=== PATIENT | female | born 1990 | race Caucasian/White ===

== ENCOUNTER 2020-11-14 09:00 | Inpatient (IN) | payer OTHER ==
[2020-11-14] MEDS: DEXTROSE 5%-LACTATED RINGERS 1,000 ML IV SCH ×2 (09:35→15:50)
[2020-11-14] MEDS ORDERED: SODIUM CHLORIDE 100 ML IVPB ONE ×3 (09:41→17:33)
[2020-11-14] MEDS ORDERED: AMPICILLIN SODIUM 2 GM VIAL ONE (09:41)
[2020-11-14 09:57] VITALS: BMI 30.9
[2020-11-14 10:30] LABS: BASO % 0.1 % (0-2.0); HEMATOCRIT 33.4 % (32.4-45.2); HEMOGLOBIN 11.3 GM/dL (10.7-15.3); LYMPH % 9.1 % (8-40); MCH 29.7 pg (25.7-33.7); MCHC 33.7 g/dl (32.0-36.0); MEAN CELL VOLUME 88.1 fl (80-96); MEAN PLT VOLUME 7.3 fl (7.5-11.1); MONO % 2.5 % (3.8-10.2); NEUT % 88.3 % (42.8-82.8); PLATELET COUNT 285 10^3/uL (134-434); RBC 3.79 M/mm3 (3.60-5.2); RDW 14.8 % (11.6-15.6); WHITE BLOOD COUNT 12.3 K/mm3 (4.0-10.0)
[2020-11-14] MEDS ORDERED: PROMETHAZINE HCL 25 MG/1 ML VIAL IVPB ONE (10:33)
[2020-11-14] MEDS ORDERED: BUTORPHANOL TARTRATE 1 MG/ML VIAL IVPUSH PRN (10:33)
[2020-11-14 10:41] LABS: INR 0.96 (0.83-1.09); PROTHROMBIN TIME (PATIENT) 11.8 SEC (9.7-13.0)
[2020-11-14 10:43] LABS: ACTIVATED PTT 28.2 SECONDS (25.2-36.5)
[2020-11-14] MEDS ORDERED: AMPICILLIN - 2 GM in SODIUM CHLORIDE 100 ML IVPB ONE (10:49)
[2020-11-14 10:53] LABS: BLOOD UREA NITROGEN 8.6 mg/dL (7-18); CALCIUM 8.4 mg/dL (8.5-10.1)
[2020-11-14 10:57] LABS: CREATININE 0.6 mg/dL (0.55-1.3)
[2020-11-14] MEDS ORDERED: PROMETHAZINE HCL 25 MG/1 ML VIAL ONE ×2 (11:03→15:18)
[2020-11-14] MEDS ORDERED: BUTORPHANOL TARTRATE 2 MG/ML VIAL ONE (11:03)
[2020-11-14] MEDS ORDERED: AMPICILLIN SODIUM 1 GM VIAL ONE ×2 (13:31→17:33)
[2020-11-14] MEDS: AMPICILLIN - 1 GM in SODIUM CHLORIDE 100 ML IVPB SCH ×3 (13:50→22:49)
[2020-11-14] MEDS ORDERED: OXYTOCIN 20 UNITS in 0.9% NS 20 UNIT/1,000 ML INFUS.BAG IV ONE ×2 (14:26→22:31)
[2020-11-14] MEDS ORDERED: AMPICILLIN - 1 GM in SODIUM CHLORIDE 100 ML IVPB SCH (15:00)
[2020-11-14] MEDS ORDERED: BUTORPHANOL TARTRATE 1 MG/ML VIAL IVPUSH ONE (15:03)
[2020-11-14] MEDS ORDERED: PROMETHAZINE HCL 25 MG/1 ML VIAL IVPUSH ONE (15:03)
[2020-11-14] MEDS ORDERED: BUTORPHANOL TARTRATE 1 MG/ML VIAL ONE (15:18)
[2020-11-14] MEDS ORDERED: OXYTOCIN 30 UNITS in 0.9% NS 30 UNIT/500 ML INFUS.BAG IVPB ONE (16:48)
[2020-11-14] MEDS ORDERED: LIDOCAINE HCL 1% PRESERVATIVE FREE - 30ML VIAL ONE ×2 (16:49→19:07)
[2020-11-14] MEDS ORDERED: OXYTOCIN 30 UNITS in 0.9% NS 30 UNIT/500 ML INFUS.BAG IVPB SCH (17:30)
[2020-11-14] MEDS ORDERED: METHYLERGONOVINE MALEATE 0.2 MG/1 ML AMP IM PRN (19:39)
[2020-11-14] MEDS ORDERED: BISACODYL 10 MG SUPP.RECT RC PRN (19:39)
[2020-11-14] MEDS ORDERED: BENZOCAINE 20% 57 GM BOTTLE TP PRN (19:39)
[2020-11-14] MEDS ORDERED: BENZOCAINE 28 GM HEMORRHOIDAL OINTMENT TP PRN (19:39)
[2020-11-14] MEDS ORDERED: WITCH HAZEL 50% (TUCKS) 40 PAD/JAR PAD TP PRN (19:39)
[2020-11-14] MEDS ORDERED: OXYTOCIN 20 UNITS in 0.9% NS 20 UNIT/1,000 ML INFUS.BAG IV SCH (19:45)
[2020-11-14] MEDS: ACETAMINOPHEN 325 MG TABLET (FP) PO PRN (22:30)
[2020-11-14] MEDS: IBUPROFEN 600 MG TABLET (FP) PO PRN (22:30)
[2020-11-14] MEDS ORDERED: IBUPROFEN 600 MG TABLET (FP) PO ONE (22:30)
[2020-11-14] MEDS ORDERED: ACETAMINOPHEN 325 MG TABLET (FP) ONE (22:31)
[2020-11-15] MEDS: FERROUS SO4 325 MG TABLET (FP) PO SCH ×3 (00:06→22:33)
[2020-11-15 00:50] LABS: CORD BASE EXCESS -9.9 mmol/L (0-2); CORD HCO3 19.1 mmHg (20-29); CORD PCO2 52.5 mmHg (30-78); CORD pH 7.179 (7.14-7.44)
[2020-11-15 00:51] LABS: CORD BASE EXCESS -10.5 mmol/L (0-2); CORD HCO3 19.2 mmHg (20-29); CORD PCO2 56.6 mmHg (30-78); CORD pH 7.149 (7.14-7.44)
[2020-11-15] MEDS: PRENATAL VITAMINS W/ FOLIC ACID TABLET (FP) PO SCH (09:32)
[2020-11-15 09:59] LABS: BASO % 0.4 % (0-2.0); EOS % 0.1 % (0-4.5); HEMATOCRIT 29.4 % (32.4-45.2); HEMOGLOBIN 9.6 GM/dL (10.7-15.3); LYMPH % 14.1 % (8-40); MCH 29.5 pg (25.7-33.7); MCHC 32.7 g/dl (32.0-36.0); MEAN CELL VOLUME 90.4 fl (80-96); MEAN PLT VOLUME 7.2 fl (7.5-11.1); NEUT % 81.4 % (42.8-82.8); PLATELET COUNT 222 10^3/uL (134-434); RBC 3.25 M/mm3 (3.60-5.2); RDW 15.1 % (11.6-15.6)
[2020-11-15] MEDS ORDERED: SENNOSIDES/DOCUSATE COMBO (SENNA PLUS) TABLET (UD) PO PRN (22:00)
[2020-11-16] MEDS: IBUPROFEN 600 MG TABLET (FP) PO PRN (05:59)
[2020-11-16] MEDS: ACETAMINOPHEN 325 MG TABLET (FP) PO PRN (06:02)
[2020-11-16] MEDS: FERROUS SO4 325 MG TABLET (FP) PO SCH (09:49)
[2020-11-16] MEDS: PRENATAL VITAMINS W/ FOLIC ACID TABLET (FP) PO SCH (09:49)
[2020-11-16 10:52] VITALS: BP 126/78; PULSE 82; TEMP 97.8
== END 2020-11-16 14:40 | disposition home or self-care (01) | DRG 560 ==
LOC: JLDR 09:00 → J3W 22:53
PROVIDERS: ADMIT Obstetrics & Gynecology; ATTEND Obstetrics & Gynecology
PROC: 10E0XZZ Delivery of Products of Conception, External Approach (ICD-10-PCS; principal; 2020-11-14)
PROC: 10907ZC Drainage of Amniotic Fluid, Therapeutic from Products of Conception, Via Natural or Artificial Opening (ICD-10-PCS; 2020-11-14)
PROC: 0W8NXZZ Division of Female Perineum, External Approach (ICD-10-PCS; 2020-11-14)
DX: O80 Encounter for full-term uncomplicated delivery (principal); Z37.0 Single live birth; Z3A.38 38 weeks gestation of pregnancy
CPT/HCPCS: 36415; 36600; 59025; 59409; 80048; 82803; 85025; 85610; 85730; 86780; 86850; 86900; 86901; C9803; U0003; U0005

== ENCOUNTER 2022-10-27 10:11 | Inpatient (IN) | payer OTHER ==
[2022-10-27] MEDS ORDERED: CITRIC ACID/SODIUM CITRATE 30 ML UNIT-DOSE CUP PO ONE (11:33)
[2022-10-27] MEDS ORDERED: AMPICILLIN NA/SULBACTAM NA 1.5 GM in SODIUM CHLORIDE 100 ML IVPB ONE (11:41)
[2022-10-27] MEDS ORDERED: ELECTROLYTE-148 SOLN 1,000 ML IV SCH (11:45)
[2022-10-27 11:56] VITALS: BMI 30.9
[2022-10-27] MEDS ORDERED: FENTANYL CITRATE/PF 50 MCG/ML VIAL ONE (12:02)
[2022-10-27] MEDS ORDERED: morphine SULFATE/PF 1 MG/2 ML (2cc Syringe - QUVA) ONE (12:02)
[2022-10-27] MEDS ORDERED: ACETAMINOPHEN 500 MG TABLET (FP) ONE (12:06)
[2022-10-27 12:10] LABS: BASO % 0.2 % (0-2.0); EOS % 0.1 % (0-4.5); HEMATOCRIT 35.7 % (32.4-45.2); HEMOGLOBIN 11.8 GM/dL (10.7-15.3); LYMPH % 9.6 % (8-40); MCH 29.3 pg (25.7-33.7); MCHC 33.1 g/dl (32.0-36.0); MEAN CELL VOLUME 88.4 fl (80-96); MEAN PLT VOLUME 7.3 fl (7.5-11.1); MONO % 3.6 % (3.8-10.2); NEUT % 86.5 % (42.8-82.8); PLATELET COUNT 279 10^3/uL (134-434); RBC 4.04 M/mm3 (3.60-5.2); RDW 14.1 % (11.6-15.6); WHITE BLOOD COUNT 12.3 K/mm3 (4.0-10.0)
[2022-10-27 12:17] LABS: INR 0.95 (0.83-1.09)
[2022-10-27 12:19] LABS: ACTIVATED PTT 27.3 SECONDS (25.2-36.5)
[2022-10-27] MEDS ORDERED: ONDANSETRON 4 MG/2 ML VIAL ONE (12:55)
[2022-10-27] MEDS ORDERED: KETOROLAC TROMETHAMINE 30 MG/1 ML VIAL ONE (12:55)
[2022-10-27] MEDS ORDERED: ceFAZolin SODIUM 1 GM VIAL ONE (12:55)
[2022-10-27] MEDS ORDERED: OXYTOCIN 10 UNITS/ML VIAL ONE (12:55)
[2022-10-27 13:06] LABS: POTASSIUM 3.9 mmol/L (3.5-5.1)
[2022-10-27 13:08] LABS: BLOOD UREA NITROGEN 11.7 mg/dL (7-18)
[2022-10-27 13:11] LABS: CREATININE 0.6 mg/dL (0.55-1.3)
[2022-10-27 13:43] LABS: CORD pH 7.243 (7.14-7.44)
[2022-10-27] MEDS ORDERED: METHYLERGONOVINE MALEATE 0.2 MG/1 ML AMP IM PRN (13:45)
[2022-10-27] MEDS ORDERED: ACETAMINOPHEN 325 MG TABLET (FP) PO PRN (13:45)
[2022-10-27 13:48] LABS: CORD BASE EXCESS -3.7 mmol/L (0-2); CORD PCO2 47.7 mmHg (30-78); CORD pH 7.302 (7.14-7.44)
[2022-10-27 14:02] LABS: HEPATITIS B SURFACE AG MATERN NON-REACTIVE (NONREACTIVE)
[2022-10-27 14:31] LABS: HIV INTERPRETATION NEGATIVE (NEGATIVE)
[2022-10-27] MEDS: OXYTOCIN 20 UNITS in 0.9% NS 20 UNIT/1,000 ML INFUS.BAG IV SCH (15:30)
[2022-10-27] MEDS ORDERED: OXYTOCIN 20 UNITS in 0.9% NS 20 UNIT/1,000 ML INFUS.BAG IV ONE (15:44)
[2022-10-27 16:09] VITALS: RESP 18
[2022-10-28] MEDS ORDERED: oxyCODONE HCL 5 MG TABLET PO PRN (01:45)
[2022-10-28] MEDS: OXYTOCIN 20 UNITS in 0.9% NS 20 UNIT/1,000 ML INFUS.BAG IV SCH (02:00)
[2022-10-28] MEDS: IBUPROFEN 600 MG TABLET (FP) PO PRN ×3 (05:34→23:11)
[2022-10-28] MEDS: SIMETHICONE 80 MG TAB.CHEW (FP) PO PRN ×2 (05:34→23:11)
[2022-10-28 06:40] LABS: BASO % 0.4 % (0-2.0); EOS % 0.2 % (0-4.5); HEMATOCRIT 29.9 % (32.4-45.2); HEMOGLOBIN 9.9 GM/dL (10.7-15.3); LYMPH % 11.6 % (8-40); MCH 29.5 pg (25.7-33.7); MCHC 33.1 g/dl (32.0-36.0); MEAN CELL VOLUME 88.9 fl (80-96); MEAN PLT VOLUME 7.2 fl (7.5-11.1); MONO % 3.9 % (3.8-10.2); NEUT % 83.9 % (42.8-82.8); PLATELET COUNT 224 10^3/uL (134-434); RBC 3.37 M/mm3 (3.60-5.2); RDW 13.9 % (11.6-15.6); WHITE BLOOD COUNT 11.7 K/mm3 (4.0-10.0)
[2022-10-28] MEDS ORDERED: DIPHTH,PERTUSS(ACELL),TET 0.5 ML DISP.SYRIN IM ONE (10:00)
[2022-10-28] MEDS ORDERED: BISACODYL 10 MG SUPP.RECT RC PRN (13:45)
[2022-10-29] MEDS: SIMETHICONE 80 MG TAB.CHEW (FP) PO PRN ×3 (10:26→22:41)
[2022-10-29] MEDS: IBUPROFEN 600 MG TABLET (FP) PO PRN ×2 (10:27→17:43)
[2022-10-30] MEDS: SIMETHICONE 80 MG TAB.CHEW (FP) PO PRN (06:48)
[2022-10-30] MEDS: IBUPROFEN 600 MG TABLET (FP) PO PRN (06:48)
[2022-10-30 06:56] LABS: BASO % 0.8 % (0-2.0); EOS % 2.4 % (0-4.5); HEMATOCRIT 28.9 % (32.4-45.2); HEMOGLOBIN 9.7 GM/dL (10.7-15.3); LYMPH % 19.5 % (8-40); MCH 29.8 pg (25.7-33.7); MCHC 33.4 g/dl (32.0-36.0); MEAN CELL VOLUME 89.3 fl (80-96); MEAN PLT VOLUME 7.1 fl (7.5-11.1); MONO % 5.9 % (3.8-10.2); NEUT % 71.4 % (42.8-82.8); PLATELET COUNT 256 10^3/uL (134-434); RBC 3.24 M/mm3 (3.60-5.2); RDW 14.2 % (11.6-15.6); WHITE BLOOD COUNT 9.4 K/mm3 (4.0-10.0)
[2022-10-30 09:49] VITALS: BP 111/70; PULSE 72; TEMP 98.5
== END 2022-10-30 13:15 | disposition home or self-care (01) | DRG 540 ==
LOC: JDEL 10:11 → JLDR 11:25 → J3W 15:51
PROVIDERS: ADMIT Obstetrics & Gynecology; ATTEND Obstetrics & Gynecology
PROC: 10D00Z1 Extraction of Products of Conception, Low, Open Approach (ICD-10-PCS; principal; 2022-10-27)
DX: O32.1XX0 Maternal care for breech presentation, not applicable or unspecified (principal); Z3A.39 39 weeks gestation of pregnancy; Z37.0 Single live birth
CPT/HCPCS: 36415; 36600; 59025; 80048; 82803; 85025; 85610; 85730; 86780; 86850; 86900; 86901; 87340; 87389; 88307-TC; 90715